=== PATIENT | male | born 2000 | race Caucasian/White ===

== ENCOUNTER 2022-08-26 11:59 | Emergency (ER) | payer OTHER ==
[2022-08-26] MEDS ORDERED: TORAdol 30 mg Injection IM ONE (13:20)
[2022-08-26] MEDS ORDERED: TORAdol 30 mg Injection ONE (13:23)
--- NOTE | 2022-08-26 13:28 | ERPHSYRPT ---
- History of Present Illness Time Seen by Provider: 08/26/22 12:13 Source: patient Exam Limitations: no limitations Patient Subjective Stated Complaint: Left sided earache Triage Nursing Assessment: Patient ambulated back to ED and transferred self to bed. Patient A+O X 3. Patient's skin pink, warm and dry. Patient complains of left sided earache 6/10 that started yesterday. Left ear noted to be red with yellow drainage. Physician History: 21-year-old male presented in the ER with chief complaint of left earache for the last couple of days with progressive worsening. Patient reports decreased hearing from the last side as well since yesterday. Did not notice any obvious discharge. No sore throat. No fever or chills reported. ENT Location: ear (L) Allergies/Adverse Reactions: No Known Drug Allergies Allergy (Unverified 08/26/22 12:06) Home Medications: Escitalopram Oxalate [Lexapro] 20 mg PO DAILY 08/26/22 [History] Hx Influenza Vaccination/Date Given: No Hx Pneumococcal Vaccination/Date Given: No Immunizations Up to Date: Yes Travel Risk - International Travel Have you traveled outside of the country in past 3 weeks: No - Coronavirus Screening Are you exhibiting any of the following symptoms?: No Close contact with a COVID-19 positive Pt in past 14-21 Days: No - Vaccine Status Have you recieved a Covid-19 vaccination: No - Review of Systems Constitutional: No Symptoms Ears, Nose, & Throat: Ear Pain Respiratory: No Symptoms Cardiac: No Symptoms Abdominal/Gastrointestinal: No Symptoms Genitourinary Symptoms: No Symptoms Musculoskeletal: No Symptoms Skin: No Symptoms Neurological: No Symptoms Hematologic/Lymphatic: No Symptoms - Past Medical History Pertinent Past Medical History: No Neurological History: No Pertinent History ENT History: No Pertinent History Cardiac History: No Pertinent History Respiratory History: No Pertinent History Endocrine Medical History: No Pertinent History Musculoskeletal History: No Pertinent History GI Medical History: No Pertinent History History: No Pertinent History Psycho-Social History: Anxiety, Depression Male Reproductive Disorders: No Pertinent History - Past Surgical History Past Surgical History: No Neuro Surgical History: No Pertinent History Cardiac: No Pertinent History Respiratory: No Pertinent History Gastrointestinal: No Pertinent History Genitourinary: No Pertinent History Musculoskeletal: No Pertinent History Male Surgical History: No Pertinent History - Social History Smoking Status: Never smoker Exposure to second hand smoke: No Drug Use: none Patient Lives Alone: No - Nursing Vital Signs Nursing Vital Signs: Initial Vital Signs Temperature 97.2 F 08/26/22 12:07 Pulse Rate 89 08/26/22 12:07 Respiratory Rate 18 08/26/22 12:07 Blood Pressure 156/101 08/26/22 12:07 O2 Sat by Pulse Oximetry 97 08/26/22 12:07 Pain Scale Pain Intensity 8 - Physical Exam General Appearance: no apparent distress, alert Eye Exam: bilateral eye: normal inspection, PERRL, EOMI Ear Exam: left ear: other (Impacted with earwax obscuring TM view. No mastoid tenderness bilaterally), bilateral ear: auricle normal, erythema (Bilateral canal) Nasal Exam: normal inspection Throat Exam: normal, pharynx normal Neck Exam: normal inspection, non-tender, supple, full range of motion, No meningismus Cardiovascular/Respiratory Exam: normal breath sounds, regular rate/rhythm Neurologic Exam: alert, oriented x 3, cooperative, hotel attendant II-XII nml as tested, nml cerebellar function, nml station & gait Skin Exam: normal color SpO2 Interpretation: normal SpO2: 97 O2 Delivery: Room Air Procedures - Additional Procedures Progress: Wax removal left ear. Time 1305. Flushed with warm water. Partial clearing of canal. Small piece attached to upper posterior part of canal could not be removed. Patient tolerated procedure. Ordered Tests: Medication Summary Discontinued Medications Generic Name Dose Route Start Last Admin Trade Name Kemarq PRN Reason Stop Dose Admin Ketorolac Tromethamine 30 mg 08/26/22 13:20 08/26/22 13:27 Ketorolac Tromethamine 30 Mg/Ml Inj IM 08/26/22 13:21 30 mg STAT ONE Administration Ketorolac Tromethamine Confirm 08/26/22 13:23 Ketorolac Tromethamine 30 Mg/Ml Inj Administered 08/26/22 13:24 Dose 30 mg .ROUTE .STK-MED ONE - Progress Progress: unchanged Progress Note: 08/26/22 13:21 21-year-old is evaluated in the ER for left earache with decreased hearing for the last couple of days. Patient has no history of otitis externa/swimmer's ear. Patient does have mild redness of right canal but intact normal TM. On the left side has wax obscuring TM view. Irrigation done and part of the wax is removed and patient is able to hear better. Patient I believe has a hard wax which is firmly attached to the upper posterior part of canal. I have tried to remove it manually but patient did not tolerate very well. Less likely cholesteatoma. TM intact. Patient is started on Ciprodex and recommended outpatient ENT follow-up. Discussed signs symptoms of worsening needing return to ER which he seems understanding. - Departure Departure Disposition: Home Clinical Impression: Otitis externa, Impacted ear wax Condition: Stable Critical Care Time: No Referrals: BECKIE GUAN MD [Primary Care Provider] - Follow up with PCP 1 day RABIA SERVIN MD [NON-STAFF PHY W/O PRIVILEGES] - Follow up/PCP as directed (Call tomorrow for appointment for reevaluation) Instructions: Ear Wax Impaction (DC) Additional Instructions: Follow-up with primary care/ENT for reevaluation. Take Tylenol/ibuprofen as needed for pain. Return to ER for worsening. Prescriptions: Ibuprofen 600 mg PO Q6HPRN PRN 10 Days #20 tablet PRN Reason: Pain Ciprofloxacin HCl/Dexameth [Ciproflox-Dexameth Otic Susp] 4 drop OT BID 7 Days #7.5 ml
[2022-08-26 13:39] VITALS: BP 160/98; PULSE 79
[2022-08-26 13:41] VITALS: O2SAT 97
== END 2022-08-26 13:42 | disposition home or self-care (01) ==
LOC: ED 11:59
DX: H60.92 Unspecified otitis externa, left ear (principal); H61.22 Impacted cerumen, left ear; H92.02 Otalgia, left ear; Z79.899 Other long term (current) drug therapy; Z28.310 Unvaccinated for COVID-19
CPT/HCPCS: 69210; 96372; 99282; J1885